=== PATIENT | female | born 1980 | race Caucasian/White ===

== ENCOUNTER 2019-05-03 13:10 | Outpatient (CLI) | payer OTHER, SELFPAY ==
--- NOTE | ~2019-05-03 | US_ITS ---
EXAMINATION: US OB <=14 wk fetus w TV DATE: 05/03/2019 14:23 INDICATION: Subchorionic hematoma follow-up. First trimester. TECHNIQUE: Real-time transabdominal and transvaginal pelvic ultrasound was performed. COMPARISON: Ultrasound 04/23/2019 FINDINGS: TRANSABDOMINAL ULTRASOUND: The uterus measures 11.6 x 6.3 x 8.2 cm. TRANSVAGINAL ULTRASOUND: There is an intrauterine gestational sac. A yolk sac is identified. The fet al crown rump length measures 2.3 cm, which correlates with an estimated gestational age of 9 weeks a nd 0 day(s) (+/-) 6 day(s). heart motion is identified measuring 181 beats per minute (bpm) by M-mode Doppler. There are 2 small subchorionic hematomas with the larger measuring 1.3 x 0.8 x 1.0 cm . The right ovary measures 2.0 x 1.4 x 1.9 cm. The left ovary measures 3.5 x 2.5 x 1.7 cm. There is n o free fluid in the pelvis. IMPRESSION: 1. Single living intrauterine gestation with estimated date of delivery of 12/06/2019 based on the ult rasound from 04/23/2019. 2. Two small subchorionic hematomas. Reviewed, dictated and finalized at location A. IDE CUTTER IMPRESSION: 1. Single living intrauterine gestation with estimated date of delivery of 12/05 based on the ultrasound from 04/23/2019. 2. Two small subchorionic hematomas.
== END 2019-05-03 13:11 | disposition home or self-care (01) ==
LOC: ANHIMG 13:13
PROVIDERS: Visit Provider Obstetrics & Gynecology
DX: O36.8910 Maternal care for other specified fetal problems, first trimester, not applicable or unspecified (principal); Z3A.00 Weeks of gestation of pregnancy not specified
CPT/HCPCS: 76801; 76817

== ENCOUNTER 2019-05-31 09:33 | Outpatient (CLI) | payer OTHER, SELFPAY ==
--- NOTE | ~2019-05-31 | US_ITS ---
EXAMINATION: US OB <=14 wk fetus w TV DATE: 05/31/2019 10:18 INDICATION: Follow-up subchorionic hematoma TECHNIQUE: Real-time transabdominal obstetric ultrasound. FINDINGS: Comparison to multiple prior studies sequentially, with oldest reviewed study dated 020. The uterus measures 13.5 x 9.2 x 10.4 cm.. There is an intrauterine gestational sac, with pole identified. The crown rump length measures 6.7 cm.. heart tones are identified measuring 157 BPM. There is a persistent small subchorionic hemorrhage measuring 1.9 x 1.1 x 1.2 cm. Placenta is p osterior. IMPRESSION: 1. SL IUP with an EGA of 13 weeks, 0 days (EDC by initial ultrasound of 12/06/2019). 2: Persistent small subchorionic hemorrhage. Reviewed, dictated and finalized at location B. ER INSPECTOR IMPRESSION: 1. SL IUP with an EGA of 13 weeks, 0 days (EDC by initial ultrasound of ). 2: Persistent small subchorionic hemorrhage.
== END 2019-05-31 09:34 | disposition home or self-care (01) ==
LOC: ANHIMG 09:35
PROVIDERS: Visit Provider Obstetrics & Gynecology
DX: O36.8910 Maternal care for other specified fetal problems, first trimester, not applicable or unspecified (principal); Z3A.13 13 weeks gestation of pregnancy
CPT/HCPCS: 76801; 76817

== ENCOUNTER 2019-06-14 09:59 | Outpatient (CLI) | payer OTHER, SELFPAY ==
--- NOTE | ~2019-06-14 | US_ITS ---
EXAMINATION: US OB limited DATE: 06/14/2019 10:33 INDICATION: Subchorionic hematoma during early second trimester of TECHNIQUE: Real-time ultrasound of the pelvis was performed. The interpreting radiologist was not pre sent for the study. COMPARISON: 05/31/2019 FINDINGS: There is a single living fetus in transverse lie with head to maternal right. The placenta is posteri or. There are couple small subchorionic hematomas along the left inferior margin of the placenta on t he larger measuring 2.8 x 0.5 x 2.6 cm and the smaller more medial measuring 11 x 9 x 6 [address]. hea rt rate is 144 beats per minute (bpm). The amniotic fluid index is subjectively normal. Focal thicken ing of the anterior wall of the lower uterine segment which is without correlate on the prior imaging suggests this represents a contraction. IMPRESSION: 1. Single living fetus in transverse lie with head to maternal right and with heart rate of 144 bpm. 2. A couple small subchorionic hematomas along the inferior margin of the posterior placenta. Reviewed, dictated and finalized at location A. IMPRESSION: 1. Single living fetus in transverse lie with head to maternal right and with f etal heart rate of 144 bpm. 2. A couple small subchorionic hematomas along the inferior margin of the poste rior placenta.
== END 2019-06-14 10:00 | disposition home or self-care (01) ==
PROVIDERS: Visit Provider Obstetrics & Gynecology
DX: O36.8910 Maternal care for other specified fetal problems, first trimester, not applicable or unspecified (principal); Z3A.00 Weeks of gestation of pregnancy not specified
CPT/HCPCS: 76815

== ENCOUNTER 2019-11-29 06:25 | Inpatient (IN) | payer OTHER, SELFPAY ==
[2019-11-29] VITALS (18 sets, daily range): BP systolic 89–166; BP diastolic 14–100; PULSE 44–193; RESP 16–18; TEMP 36.7; O2SAT 100; BMI 29.9
[2019-11-29 07:07] LABS: Basophils Absolute Auto 0.1 K/mm3 (0.0-0.1); Basophils Percent Auto 0.5 % (0.2-1.2); Eosinophils Absolute Auto 0.1 K/mm3 (0-0.3); Eosinophils Percent Auto 0.5 % (0-4.4); Hematocrit 41.3 % (37.0-47.0); Hemoglobin 13.9 g/dL (12.0-15.0); Immature Granulocyte Absolute 0.06 K/mm3 (0.00-0.031); Immature Granulocyte Percent A 0.5 % (0-0.5); Lymphocytes Percent Auto 18.2 % (18.3-44.2); Mean Corpuscular HGB Conc 33.7 g/dl (32-36); Mean Corpuscular Hemoglobin 31.6 pg (26-34); Mean Corpuscular Volume 93.9 fl (80-100); Mean Platelet Volume 12.5 fl (7.4-10.4); Monocytes Absolute Auto 0.8 K/mm3 (0.1-0.6); Monocytes Percent Auto 6.9 % (2.6-8.5); Neutrophils Percent Auto 73.4 % (45.5-73.1); Platelet Count Result 127 k/mm3 (150-375); Red Cell Distribution Width 13.1 % (11.5-14.5)
[2019-11-29] MEDS: LACTATED RINGERS 1,000 ML 125 ML IV CONT (07:07)
[2019-11-29] MEDS: OXYTOCIN 30 UNITS/NS 500 ML 30 UNITS/500 ML BAG IV CONT (07:08)
--- NOTE | 2019-11-29 07:11 | LDADM ---
This patient, Blanca Rodriguez, was admitted to Labor/Delivery/Recovery 108 on 11/29/19 at 06:25. Plans for labor, pain management and were discussed with patient. Patient/family oriented to hospital policies and general routines including ID bracelet, bed and alarms, visiting hours, pain management, procedures, bathroom and other care routines, personal items, smoking policy, room service/diet and guest tray routines, security routines, and visiting hours. Patient/Family are encouraged to report perceived risks to care and to ask questions if they do not understand what they are told or what they should do. See OBIX for further documentation.
--- NOTE | 2019-11-29 08:09 | P.PNAN_ITS ---
Anes - Eval Pre Procedure Procedure: labor epidural Date/Time: 11/29/19 08:09 Preop Diagnosis: labor pain Pre Op Diagnosis: Induction of Labor Patient Data Age: 39 Gender: F Height: 5 ft 5.5 in Weight: 83 kg Last Vital Signs Pulse 118 H 11/29/19 08:01 BP 103/14 L 11/29/19 08:01 Allergies Allergy/AdvReac Type Severity Reaction Status Date / Time Sulfa (Sulfonamide Allergy Mild HIVES Verified 11/08/19 14:28 Antibiotics) Home Medications Medication Instructions Recorded Confirmed Type PNV cmb#95-ferrous fumarate-FA 1 tablet PO DAILY 11/08/19 11/08/19 History [] ascorbic acid (vitamin C) [Vitamin 250 mg PO DAILY 11/08/19 11/08/19 History C] ergocalciferol (vitamin D2) 1,250 mcg PO WEEKLY 11/08/19 11/08/19 History [Vitamin D2] Laboratory Tests 11/29/19 11/29/19 06:56 06:56 WBC 11.0 K/mm3 H K/mm3 (4.5-10.0) RBC 4.40 M/mm3 M/mm3 (4.2-5.4) Hgb 13.9 g/dL g/dL (12.0-15.0) Hct 41.3 % % (37.0-47.0) MCV 93.9 fl fl (80-100) MCH 31.6 pg pg (26-34) MCHC 33.7 g/dl g/dl (32-36) RDW 13.1 % % (11.5-14.5) Plt Count 127 k/mm3 L k/mm3 (150-375) MPV 12.5 fl H fl (7.4-10.4) Immature Gran % (Auto) 0.5 % % (0-0.5) Neut % (Auto) 73.4 % H % (45.5-73.1) Lymph % (Auto) 18.2 % L % (18.3-44.2) [place] % (Auto) 6.9 % % (2.6-8.5) Eos % (Auto) 0.5 % % (0-4.4) Baso % (Auto) 0.5 % % (0.2-1.2) Lymph # (Auto) 2.00 K/mm3 K/mm3 (0.9-3.2) [place] # (Auto) 0.8 K/mm3 H K/mm3 (0.1-0.6) Eos # (Auto) 0.1 K/mm3 K/mm3 (0-0.3) Baso # (Auto) 0.1 K/mm3 K/mm3 (0.0-0.1) Abs Immat Gran (auto) 0.06 K/mm3 H K/mm3 (0.00-0.031) Absolute Neuts (auto) 8.0 K/mm3 H K/mm3 (1.3-6.7) Absolute Nucleated RBC 0.0 K/mm3 K/mm3 (0.0-0.012) Nucleated RBC % 0.0 % % (0.0-0.2) RPR Pending Patient hx anesthesia problems: none Family hx anesthesia problems: none [facility] Family History Family History (Updated 11/08/19 @ 14:33 by Ailin Seaman RN) Grandparent Breast cancer Prostate carcinoma Emphysema of lung Colon cancer Cerebrovascular accident Father High cholesterol Mother Mental disorder, not otherwise specified Sibling PVC (premature ventricular contraction) Social History Social History Smoking status: Never smoker Substance use: never Spiritual care concerns: No Exam Day of Procedure 11/29/19 08:09
--- NOTE | 2019-11-29 09:05 | WPDOBADMIT ---
Obstetrics - Admit Note Admission Note: record reviewed. No pertinent additions to the history and/or any subsequent changes in the physical findings that are not consistent with the expected course of the were found. Additions to the history and/or subsequent changes in the physical findings follow. None.Here for MIL per Dr. Boothe. Asked to AROM. Cervix /-2 AROM with clear fluid. FHTs reactive
[2019-11-29] MEDS: OXYTOCIN 30 UNITS/NS 500 ML 30 UNITS/500 ML BAG 125 UNITS IV CONT (11:26)
--- NOTE | 2019-11-29 12:11 | PM.OBPRVD ---
OB - Delivery Note Procedure Delivery date: 11/29/19 Intrapartal events: None Induction method: none Route of delivery: Laceration description: Periurethral - 2nd Degree (2nd degree perineal) Delivery repair: vicryl Estimated blood loss (mL): 250 Anesthesia type: None [employer] Baby Date of : 11/29/19 Time of : 10:23 Weeks of gestation at delivery: 39 gender: Female Weight (pounds): 8 Weight (ounces): 13 presentation: vertex position: Left Occiput Anterior Placenta delivery description: Spontaneous cord vessel description: 3 Vessels score one minute: 8 score five minutes: 9
--- NOTE | 2019-11-29 13:48 | PC.NURSE ---
Addendum entered by Chiara Morris RN 11/29/19 15:18: Pt. admitted at 1322. Original Note: Patient transferred to post room #278 per wheelchair. Support person present. Oriented to unit, room, information board, rooming in, admission packet and security measures. Patient verbalizes understanding.
[2019-11-29] MEDS: IBUPROFEN 600 MG TABLET (15:19)
[2019-11-29] MEDS: WITCH HAZEL 40 PADS 1 PAD TOPICAL (17:40)
[2019-11-29] MEDS: BENZOCAINE 20% AER SPR (*SP) 56 GM CAN 1 SPRAY TOPICAL (17:40)
[2019-11-29] MEDS: DOCUSATE SODIUM 100 MG CAPSULE PO (17:41)
[2019-11-29] MEDS: IBUPROFEN 600 MG TABLET PO (20:07)
[2019-11-30] MEDS: IBUPROFEN 600 MG TABLET PO (04:48)
[2019-11-30 05:35] LABS: Hematocrit 34.5 % (37.0-47.0); Hemoglobin 11.6 g/dL (12.0-15.0)
--- NOTE | 2019-11-30 08:11 | P.PNOB_ITS ---
OB - PN: Subj Subjective Date/time seen: 11/30/19 08:11 Patient comments: no complaints and pain well controlled baby status: doing well and nursing well OB - PN: Obj Data Labs CBC & Chem 7: 11/30/19 04:54 Labs: Laboratory Results - last 24 hr 11/29/19 11/30/19 06:56 04:54 Hgb 11.6 L Hct 34.5 L Blood Type O Positive Antibody Screen Negative OB - PN A/P Plan day: 1 Plan: routine care, discharge home, follow up 6 weeks and other (plans condoms until vasectomy) Time Spent With Patient Time: Total time spent is greater than 50% in coordination of care (as docu mented) at patient's floor/unit and/or counseling patient: Exam : Bimanual exam- vagina & uterus: other (Uterus firm, nt @U)
[2019-11-30] MEDS: BENZOCAINE 20% AER SPR (*SP) 56 GM CAN 1 SPRAY TOPICAL (08:15)
[2019-11-30] MEDS: DOCUSATE SODIUM 100 MG CAPSULE PO (08:15)
[2019-11-30] MEDS: MULTIVIT/MIN/PREN/FOL AC/IRON TABLET 1 TAB PO (08:15)
[2019-11-30] MEDS: WITCH HAZEL 40 PADS 1 PAD TOPICAL (08:15)
[2019-11-30] MEDS: ACETAMINOPHEN 325 MG TABLET 650 MG PO (08:22)
[2019-11-30 08:28] VITALS: BP 111/64; PULSE 76; RESP 18; TEMP 36.6
--- NOTE | 2019-11-30 09:00 | PC.NURSE ---
Patient was given the opportunity to view the discharge video Mother & Baby Care, The First Two Weeks and to ask questions. Patient declined viewing the video and has been given the mother/baby guide for home reference.
[2019-11-30 09:04] LABS: Rapid Plasma Reagin Non-Reactive (NonReactive)
--- NOTE | 2019-11-30 11:44 | PC.NURSE ---
Self care and infant care discharge instructions given including follow up visit date and time. No questions or concerns voiced. Very pleasant and cooperative.
--- NOTE | 2019-11-30 12:30 | PC.NURSE ---
Observed mother is able to independently latch with appropriate positioning/alignment. She has slight nipple tenderness, is feeding as required and waking infant to feed if needed. Mother reports tenderness for the first week of with other children due to nipple size, reporting after 1 week, is able to accommodate her large nipple without discomfort. has had at least 8 effective feedings in the past 24 hours, and is currently meeting outcomes for weight, output, jaundice and feeding frequencies. Mother states she feels confident to continue effective at home. Reviewed transition to breast milk, signs of adequate intake, and engorgement/relief. Instructed to call ICP if intake/output less than required. Reviewed regular medications mother is taking. Information provided per Maxine. Reviewed community resources on the [facility] website and in the Mom/Baby guide. Information on outpatient services provided. Mother has no further questions at this time.
[2019-12-01 08:48] VITALS: BP 101/58; PULSE 76; RESP 16; TEMP 37.2; O2SAT 99
--- NOTE | 2019-12-20 08:06 | PM.OBDSVD ---
DS: Admitting Diagnosis Admitting Diagnosis Admitting Diagnosis: Induction of Labor DS: Discharge Diagnosis Discharge Diagnosis (1) Term : Code(s): Z34.90 - Encounter for supervision of normal , unspecified, unspecified trimester Status: Acute OB - DS: Summary OB Procedures : None OB Procedures Intrapartum: Spontaneous Vag Delivery OB Procedures: : None Peripartum Data Infant Delivery Method: Natural Vaginal Episiotomy description: None complications: none Status at Discharge Functional status at discharge: independent ambulation Time Spent with Patient Time attestation: Total time spent providing and/or coordinating discharge services: Discharge Plan Discharge Consulting providers: Maribell Oliver Discharging Clinician: Emily De Anda Anticipated Discharge Date/Time: 11/30/19 10:00 Patient Disposition: Home, Self-Care Activity: pelvic rest Diet: regular Discharge Instructions: Education: Mom and Baby Guide Given to: Mother Follow-Up: Call your delivering provider's office for an appointment to be seen in: 6 Weeks Mom and baby should come to the [facility] for the follow-up appointment. Appointment Date/Time: December 01, 2019 at 9:00 am What to expect at your follow-up visit: Blood Pressure Check Physical Assessment Call [phone] if you are unable to keep your appointment time. BREAST CARE: * Wear a snug supportive bra. * For engorgement discomfort: Breast Feeding: * Apply warm moist washcloths * Express milk as needed to relieve engorgement * Wear loose clothing * For sore nipples: * Identify correct latch-on * Apply warm moist washcloths before and after nursing * Air dry nipples after nursing * May apply Lansinoh cream to nipples EPISIOTOMY/PERINEAL CARE: * Until bleeding stops, use your opal bottle after urinating * Change your pad frequently throughout the day * You may take sitz baths several times a day (fill your bathtub with warm water and soak for 20 minutes.) Do NOT bathe in the water * No tub baths until seen by your physician - You may shower ACTIVITY: * Rest as much as possible. * Do not exercise or lift anything heavier than your baby (such as laundry or other children.) * Avoid stairs or driving as much as possible. * Do not put anything into the vagina. No douching, tampons, or sexual activity until seen by physician. NOTIFY PHYSICIAN IF YOU HAVE ANY QUESTIONS OR IF ANY OF THE FOLLOWING SYMPTOMS OCCUR: * If your episiotomy becomes red, swollen, or more painful than what you have experienced in the hospital. * If your vaginal bleeding becomes foul smelling. * If your vaginal bleeding becomes more heavy than a period or if your bleeding changes from pink to bright red. However, you may pass an occasional walnut-sized clot once or twice for the first week . * If you experience a sharp, shooting pain in you calves. * If you discover a hard, reddened area on your breast or if you experience flu-like symptoms. DIET: * Eat regular, well-balanced meals. * Drink plenty of fluids daily. If , drink to thirst. Patient Instructions: Antibiotic Form Stand Alone Forms: General Discharge Information Follow-up/Referrals: Emily De Anda MD [Physician] - Discharge Medications: New Dermoplast (with menthol) 20-0.5 % Aerosol 1 spray topical PRN PRN (Reason: Perineal Discomfort) RF: 0 ibuprofen 600 mg Tablet 600 mg PO Q6H PRN (Reason: Cramping) RF: 0 [id number] Cream 1 applic topical PRN PRN (Reason: Sore Nipples) RF: 0 KPN Tablet 1 tab PO DAILY RF: 0 Preparation H (Bess Duffy) 50 % Pads, Medicated 1 pad topical PRN PRN (Reason: Perineal Discomfort) RF: 0 Continued ascorbic acid (vitamin C) [Vitamin C] 250 mg Tablet,Chewable 250
== END 2019-11-30 13:37 | disposition home or self-care (01) | DRG 807 ==
LOC: ANHOB2 11-30 12:01 → ANHLDR 12-02 10:15 → ANHOB2 12-02 10:15
PROVIDERS: Admitting Provider Obstetrics & Gynecology; Visit Provider Obstetrics & Gynecology Gynecology
DX: O62.3 Precipitate labor (principal); Z37.0 Single live birth; Z3A.39 39 weeks gestation of pregnancy; O70.1 Second degree perineal laceration during delivery; O71.82 Other specified trauma to perineum and vulva
CPT/HCPCS: 36415; 85014; 85018; 85025; 86592; 86850; 86900; 86901; A9270; J2590; J7120